=== PATIENT | female | born 1955 | race Caucasian/White ===

== ENCOUNTER 2017-10-19 07:43 | Day surgery (SDC) ==
[2017-10-19] MEDS: TETRACAINE 0.5% UNIT-DOSE OP PRN ×2 (08:05→08:45)
[2017-10-19] MEDS: BETADINE OPTH PREP OP PRN ×2 (08:06→08:46)
[2017-10-19] MEDS: CYCLOGYL 2% OPTH OP PRN ×3 (08:07→08:17)
[2017-10-19] MEDS ORDERED: NIRAVAM ODT (SURGERY) PO PRN (08:15)
[2017-10-19] MEDS ORDERED: BRIMONIDINE TARTRATE 0.2% OPTH SOL OP PRN (08:15)
[2017-10-19] MEDS ORDERED: AK-DILATE 10% OPTH SOL OP PRN (08:15)
[2017-10-19] MEDS ORDERED: OMIDRIA 1-0.3% IN BSS BAG IR ONE (08:15)
[2017-10-19] MEDS ORDERED: ZOFRAN 4 MG/2 ML IVP ONE (08:15)
[2017-10-19] MEDS ORDERED: MOXIFLOXACIN 150 MCG/0.1 ML-BSS INJ (SURGERY) IO ONE (08:15)
[2017-10-19] MEDS ORDERED: LIDOCAINE 1%/PHENYLEPHRINE 1.5% BSS (SURGERY) INTRAOCULA ONE (08:15)
[2017-10-19] MEDS ORDERED: TORADOL ONE (08:30)
[2017-10-19] MEDS ORDERED: DIPRIVAN 20 ML VIAL IVP ONE (08:30)
[2017-10-19] MEDS ORDERED: VERSED ONE (08:30)
[2017-10-19 09:10] VITALS: BP 99/42
== END 2017-10-19 09:20 | disposition home or self-care (01) ==
LOC: SURG 07:43
PROVIDERS: ATTEND Ophthalmology
DX: H25.12 Age-related nuclear cataract, left eye (principal)

== ENCOUNTER 2017-11-02 08:10 | Day surgery (SDC) ==
[2017-11-02] MEDS: TETRACAINE 0.5% UNIT-DOSE OP PRN ×2 (08:20→09:15)
[2017-11-02] MEDS: BETADINE OPTH PREP OP PRN ×2 (08:21→09:15)
[2017-11-02] MEDS: CYCLOGYL 2% OPTH OP PRN ×3 (08:22→08:32)
[2017-11-02] MEDS ORDERED: PRED FORTE 1% OPTH SOL OP ONE (08:38)
[2017-11-02] MEDS ORDERED: OMIDRIA 1-0.3% IN BSS BAG IR ONE (08:38)
[2017-11-02] MEDS ORDERED: NIRAVAM ODT (SURGERY) PO PRN (08:38)
[2017-11-02] MEDS ORDERED: ZOFRAN 4 MG/2 ML IVP ONE (08:38)
[2017-11-02] MEDS ORDERED: BRIMONIDINE TARTRATE 0.2% OPTH SOL OP PRN (08:38)
[2017-11-02] MEDS ORDERED: MOXIFLOXACIN 150 MCG/0.1 ML-BSS INJ (SURGERY) IO ONE (08:38)
[2017-11-02] MEDS ORDERED: AK-DILATE 10% OPTH SOL OP PRN (08:38)
[2017-11-02] MEDS: LIDOCAINE 1%/PHENYLEPHRINE 1.5% BSS (SURGERY) INTRAOCULA ONE ×2 (08:56→09:20)
[2017-11-02] MEDS ORDERED: DIPRIVAN 20 ML VIAL IVP ONE (09:10)
[2017-11-02] MEDS ORDERED: TORADOL ONE (09:10)
[2017-11-02] MEDS ORDERED: VERSED ONE (09:10)
[2017-11-02] MEDS ORDERED: LIDOCAINE 1% 20 ML MDV ID STA (14:17)
[2017-11-02 14:36] VITALS: BP 131/76; TEMP 97.9
== END 2017-11-02 10:05 | disposition home or self-care (01) ==
LOC: SURG 08:10
PROVIDERS: ATTEND Ophthalmology
DX: H25.11 Age-related nuclear cataract, right eye (principal)